=== PATIENT | male | born 1995 | race Caucasian/White ===

== ENCOUNTER 2016-10-22 07:25 | Emergency (ER) | payer MEDICAID ==
[~2016-10-22] VITALS: Ht 172.7 cm; Wt 83.5 kg
[2016-10-22 08:52] LABS: BASOPHIL % 0.1 % (0-2); PLATELET COUNT 142 x10^3mcL (130-400); RED CELL DISTRIBUTION WIDTH 12.6 % (11.5-14.5)
[2016-10-22 09:06] LABS: CALCIUM 8.4 mg/dL (8.5-10.1); CHLORIDE SERUM 97 mmol/L (98-107); CREATININE SERUM 1.2 mg/dL (0.7-1.3); GFR1 > 60 mL/min; GLUCOSE SERUM 109 mg/dL (74-106); POTASSIUM SERUM 3.7 mmol/L (3.5-5.1); SODIUM SERUM 135 mmol/L (136-145)
[2016-10-22 09:10] LABS: ALKALINE PHOSPHATASE 109 U/L (46-116); ALT/SGPT 245 U/L (16-63); AST/SGOT 246 U/L (15-37); BILIRUBIN TOTAL 0.49 mg/dL (0.20-1.00); MAGNESIUM 1.9 mg/dL (1.8-2.4); TOTAL PROTEIN, SERUM 7.3 g/dL (6.4-8.2)
[2016-10-22 09:17] LABS: ALBUMIN 3.3 g/dL (3.4-5.0)
[2016-10-22 09:32] LABS: UA SPECIFIC GRAVITY <=1.005 (1.005-1.035); microscopic required? YES; urine erythrocyte 1+ (NEGATIVE)
[2016-10-22 11:31] VITALS: BP 97/63
== END 2016-10-22 11:31 | disposition home or self-care (01) ==
LOC: ED 07:25
PROVIDERS: Emergency Medicine
DX: R50.9 Fever, unspecified (principal); M79.1 Myalgia; R42 Dizziness and giddiness; R03.0 Elevated blood-pressure reading, without diagnosis of hypertension; J02.9 Acute pharyngitis, unspecified; R53.83 Other fatigue; R63.0 Anorexia; Z88.1 Allergy status to other antibiotic agents; Z88.6 Allergy status to analgesic agent
CPT/HCPCS: 87804; J7030